=== PATIENT | male | born 1940 | race Caucasian/White ===

== ENCOUNTER 2016-09-28 08:19 | Emergency (ER) | payer MEDICARE, OTHER ==
--- NOTE | 2016-09-29 08:16 | ER ---
ADMIT: 09/28/2016 RM/LOC: ER [facility] MR#: [id number] [address] [id number] AMINA TAYLOR [address] [place] [address] Emergency Room Report SEX: M AGE: 76 : 1940 DATE: 09/28/2016 A 76-year-old white male coming in with ankle swelling pain. He does have a history of gout. I do believe this is gout. I did x-ray it. He has no arthritic changes or tophi. We gave him Decadron 20 IV. Toradol 30 IV. He does not take his allopurinol on a daily basis, just kind of when he wants to. Told him he has to stop that till this calms down and then he can use Motrin [id number] 3-4 every 6-8 hours p.r.n., pain for the next couple of days until the gout inflammation calms down. Once it calms down, then he can restart the allopurinol, but he has to take it daily. Also a low-purine diet and follow up [facility] as [facility]. CONDITION ON DISCHARGE: Good. Alexander Garrison MD/ nicolasa JOB #: [id number] CC: Alexander Garrison MD, Attending Physician [facility] Physician, Family Physician
== END 2016-09-28 09:36 | disposition home or self-care (01) ==
LOC: ER 08:19
DX: M10.9 Gout, unspecified (principal); Z79.899 Other long term (current) drug therapy